=== PATIENT | male | born 1995 | race Caucasian/White ===

== ENCOUNTER 2018-04-18 12:00 | Inpatient (IN) | payer OTHER ==
[~2018-04-18] VITALS: Ht 177.8 cm; Wt 118.2 kg
[2018-04-18 12:58] LABS: HEMATOCRIT 41.4 % (42.0-54.0); HEMOGLOBIN 14.1 g/dL (13.5-17.5); MCH 30.9 pg (26.0-34.0); MCHC 34.1 g/dL (31.0-37.0); MCV 90.6 fL (80.0-100.0); MEAN PLATELET VOLUME 10.2 fL (7.4-10.4); PLATELET COUNT 298 10x3/uL (130-400); RBC 4.57 10x6/uL (4.20-6.10); RDW 12.2 % (11.5-14.5); WBC 27.3 10x3/uL (4.8-10.8)
[2018-04-18 13:04] LABS: ALBUMIN 3.7 g/dL (3.4-5.0); ALKALINE PHOSPHATASE 69 U/L (46-116); ALT (SGPT) 163 U/L (10-68); BILIRUBIN - TOTAL 0.32 mg/dL (0.2-1.3); CALC OSMOLALITY 282 mosm/kg (275-300); CALCIUM 7.8 mg/dL (8.5-10.1); CARBON DIOXIDE 22.8 mmol/L (21.0-32.0); CHLORIDE - SERUM 103 mmol/L (98-107); CREATININE - SERUM 1.1 mg/dL (0.6-1.3); GLUCOSE 127 mg/dL (74-106); POTASSIUM - SERUM 3.5 mmol/L (3.5-5.1); PROTEIN - SERUM 6.9 g/dL (6.4-8.2); SODIUM 141 mmol/L (136-145); UREA NITROGEN 13 mg/dL (7-18); eGFR NON AFRICAN AMERICAN 87 mL/min (90-120)
[2018-04-18 13:12] LABS: EOSINOPHILS 1 % (0-7); LYMPHOCYTES 14 % (15-50); MONOCYTES 6 % (2-11); NEUTROPHILS 70 % (40-80); PLATELET ESTIMATE NORMAL
[2018-04-18 13:30] VITALS: BP 130/51
[2018-04-18 14:30] VITALS: BP 135/50
[2018-04-18 15:02] VITALS: BP 132/50
[2018-04-18 20:53] VITALS: BP 128/86
[2018-04-19 04:00] VITALS: BP 126/59
[2018-04-19 04:39] VITALS: BP 158/79; Ht 177.8 cm; Wt 118.2 kg
[2018-04-19 05:47] LABS: MCH 29.9 pg (26.0-34.0); MCHC 33.5 g/dL (31.0-37.0); MCV 89.3 fL (80.0-100.0); MEAN PLATELET VOLUME 9.6 fL (7.4-10.4); PLATELET COUNT 322 10x3/uL (130-400); RDW 12.6 % (11.5-14.5)
[2018-04-19 06:58] LABS: ALKALINE PHOSPHATASE 52 U/L (46-116); BILIRUBIN - TOTAL 0.83 mg/dL (0.2-1.3); CALC OSMOLALITY 273 mosm/kg (275-300); CALCIUM 7.6 mg/dL (8.5-10.1); CARBON DIOXIDE 23.2 mmol/L (21.0-32.0); CHLORIDE - SERUM 101 mmol/L (98-107); CREATININE - SERUM 1.2 mg/dL (0.6-1.3); GLUCOSE 141 mg/dL (74-106); SODIUM 136 mmol/L (136-145); UREA NITROGEN 13 mg/dL (7-18); eGFR NON AFRICAN AMERICAN 78 mL/min (90-120)
[2018-04-19 07:00] LABS: HEMATOCRIT 31.6 % (42.0-54.0); HEMOGLOBIN 10.6 g/dL (13.5-17.5); RBC 3.54 10x6/uL (4.20-6.10); WBC 14.3 10x3/uL (4.8-10.8)
[2018-04-19 07:01] LABS: ALT (SGPT) 116 U/L (10-68); POTASSIUM - SERUM 4.3 mmol/L (3.5-5.1)
[2018-04-19 07:03] LABS: LYMPHOCYTES 15 % (15-50); MONOCYTES 12 % (2-11); NEUTROPHILS 71 % (40-80); PLATELET ESTIMATE NORMAL
[2018-04-19 07:04] LABS: HYPOCHROMASIA OCC
[2018-04-19 08:00] VITALS: BP 124/62
[2018-04-19 12:00] VITALS: BP 124/68
[2018-04-19 16:12] VITALS: BP 124/69
[2018-04-19 19:00] VITALS: BP 142/68
[2018-04-20 00:46] VITALS: BP 116/66
[2018-04-20 05:19] LABS: BASOPHILS 0.1 % (0-2); EOSINOPHILS 0.5 % (0-7); HEMATOCRIT 26.7 % (42.0-54.0); HEMOGLOBIN 8.8 g/dL (13.5-17.5); IMMATURE GRANULOCYTES 0.6 % (0-5); LYMPHOCYTES 19.5 % (15-50); MCV 91.1 fL (80.0-100.0); MEAN PLATELET VOLUME 9.1 fL (7.4-10.4); MONOCYTES 11.3 % (2-11); RBC 2.93 10x6/uL (4.20-6.10); RDW 12.5 % (11.5-14.5)
[2018-04-20 05:24] VITALS: BP 125/72
[2018-04-20 05:29] LABS: PLATELET COUNT 217 10x3/uL (130-400); WBC 9.7 10x3/uL (4.8-10.8)
[2018-04-20 05:41] LABS: ALBUMIN 2.6 g/dL (3.4-5.0); ALKALINE PHOSPHATASE 40 U/L (46-116); BILIRUBIN - TOTAL 0.67 mg/dL (0.2-1.3); CALC OSMOLALITY 277 mosm/kg (275-300); CALCIUM 7.6 mg/dL (8.5-10.1); CARBON DIOXIDE 28.4 mmol/L (21.0-32.0); CHLORIDE - SERUM 104 mmol/L (98-107); CREATININE - SERUM 0.9 mg/dL (0.6-1.3); GLUCOSE 108 mg/dL (74-106); PROTEIN - SERUM 5.5 g/dL (6.4-8.2); SODIUM 139 mmol/L (136-145); UREA NITROGEN 11 mg/dL (7-18); eGFR NON AFRICAN AMERICAN > 90 mL/min (90-120)
[2018-04-20 05:44] LABS: ALT (SGPT) 78 U/L (10-68)
[2018-04-20 09:53] VITALS: BP 127/69
[2018-04-20 16:00] VITALS: BP 135/78
[2018-04-20 20:42] VITALS: BP 143/61
[2018-04-21 04:32] VITALS: BP 129/65
[2018-04-21 10:09] LABS: BASOPHILS 0.1 % (0-2); EOSINOPHILS 2.2 % (0-7); HEMATOCRIT 27.7 % (42.0-54.0); HEMOGLOBIN 9.2 g/dL (13.5-17.5); IMMATURE GRANULOCYTES 1.4 % (0-5); LYMPHOCYTES 21.3 % (15-50); MCH 30.7 pg (26.0-34.0); MCHC 33.2 g/dL (31.0-37.0); MCV 92.3 fL (80.0-100.0); MEAN PLATELET VOLUME 9.3 fL (7.4-10.4); MONOCYTES 7.7 % (2-11); NEUTROPHILS 67.3 % (40-80); RDW 12.4 % (11.5-14.5); WBC 11.1 10x3/uL (4.8-10.8)
[2018-04-21 10:11] LABS: PLATELET COUNT 264 10x3/uL (130-400)
[2018-04-21 10:26] LABS: ALBUMIN 2.7 g/dL (3.4-5.0); ALKALINE PHOSPHATASE 51 U/L (46-116); ALT (SGPT) 66 U/L (10-68); BILIRUBIN - TOTAL 0.62 mg/dL (0.2-1.3); CALC OSMOLALITY 277 mosm/kg (275-300); CARBON DIOXIDE 25.8 mmol/L (21.0-32.0); CHLORIDE - SERUM 103 mmol/L (98-107); CREATININE - SERUM 0.9 mg/dL (0.6-1.3); GLUCOSE 102 mg/dL (74-106); POTASSIUM - SERUM 3.6 mmol/L (3.5-5.1); PROTEIN - SERUM 6.1 g/dL (6.4-8.2); SODIUM 139 mmol/L (136-145); UREA NITROGEN 12 mg/dL (7-18); eGFR NON AFRICAN AMERICAN > 90 mL/min (90-120)
[2018-04-21 16:10] VITALS: BP 123/63
[2018-04-21 20:45] VITALS: BP 138/68
[2018-04-22 00:27] VITALS: BP 124/66
[2018-04-22 04:41] VITALS: BP 124/80
[2018-04-22 05:52] LABS: BASOPHILS 0.2 % (0-2); EOSINOPHILS 2.8 % (0-7); IMMATURE GRANULOCYTES 2.1 % (0-5); LYMPHOCYTES 26.2 % (15-50); MCH 29.7 pg (26.0-34.0); MCHC 32.1 g/dL (31.0-37.0); MCV 92.4 fL (80.0-100.0); MEAN PLATELET VOLUME 9.4 fL (7.4-10.4); MONOCYTES 7.1 % (2-11); NEUTROPHILS 61.6 % (40-80); RBC 3.03 10x6/uL (4.20-6.10); RDW 12.5 % (11.5-14.5); WBC 9.4 10x3/uL (4.8-10.8)
[2018-04-22 06:34] LABS: ALBUMIN 2.5 g/dL (3.4-5.0); ALKALINE PHOSPHATASE 47 U/L (46-116); ALT (SGPT) 79 U/L (10-68); BILIRUBIN - TOTAL 0.58 mg/dL (0.2-1.3); CALC OSMOLALITY 278 mosm/kg (275-300); CALCIUM 8.4 mg/dL (8.5-10.1); CARBON DIOXIDE 27.5 mmol/L (21.0-32.0); CHLORIDE - SERUM 104 mmol/L (98-107); CREATININE - SERUM 0.9 mg/dL (0.6-1.3); GLUCOSE 93 mg/dL (74-106); POTASSIUM - SERUM 4.1 mmol/L (3.5-5.1); SODIUM 140 mmol/L (136-145); UREA NITROGEN 13 mg/dL (7-18); eGFR NON AFRICAN AMERICAN > 90 mL/min (90-120)
[2018-04-22 06:37] LABS: PLATELET COUNT 320 10x3/uL (130-400)
[2018-04-22 08:49] VITALS: BP 125/60
--- NOTE | 2018-04-22 08:57 | MORECARE ---
CASE MANAGEMENT DISCHARGE SUMMARY PATIENT: LOUISE IRVING UNIT: [id number] ADM DATE: 04/18/18 AGE: 23 : [birth year] SEX: M ROOM/BED: D.2209 AUTHOR: GIORGIO HOWARD PHYSICIAN: REFERRING PHYSICIAN: JEFFERY RICHARDSON MD DATE OF SERVICE: 04/22/18 Discharge Plan Patient Name: LOUISE IRVING Facility: [facility]:[place] : 1995 Planned Disposition: Home or Self Care Anticipated Discharge Date: Discharge Date: Expected LOS: Initial Reviewer: [email or web address] Initial Review Date: 04/18/2018 Generated: 04/22/18 9:57 am External Providers External Provider: [facility] Next Contact Date: Service Request Date: Service Type: Resolution: Reviewer: Comments: Patient Name: LOUISE IRVING Page [phone] at 0857 All edits/amendments must be made on the electronic document DICTATION DATE: 04/22/18 0856 PER DIEM NURSE: DM 04/22/18 0856 RPT#: [id number] DC DATE: STATUS: ADM IN [facility] [address] [place] [address] END OF REPORT
--- NOTE | 2018-04-22 09:05 | MORECARE ---
CASE MANAGEMENT DISCHARGE SUMMARY PATIENT: LOUISE IRVING UNIT: [id number] ADM DATE: 04/18/18 AGE: 23 : [birth year] SEX: M ROOM/BED: D.2209 AUTHOR: ANITADOC PHYSICIAN: REFERRING PHYSICIAN: JEFFERY RICHARDSON MD DATE OF SERVICE: 04/22/18 Discharge Plan Patient Name: LOUISE IRVING Facility: [facility]:[place] : 1995 Planned Disposition: Home or Self Care Anticipated Discharge Date: Discharge Date: Expected LOS: Initial Reviewer: [email or web address] Initial Review Date: 04/18/2018 Generated: 04/22/18 10:05 am Comments DCP- Discharge Planning Updated by [email or web address]: Sera Toscano on 04/22/18 8:[address] Patient Name: LOUISE IRVING Admission Status: ER Accout number: [id number] Admission Date: 04-18-2018 : 1995 Admission Diagnosis: Attending: JEFFERY RICHARDSON Current LOS: 4 Anticipated DC Date: Planned Disposition: Home or Self Care Primary Insurance: [employer] Discharge Planning Comments: CM met with patient and his mother to assess discharge planning needs. Patient lives independently at home with his girlfriend & plans to return there at discharge. He denies any steps or stairs to his home. 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 His mom stated that herself and his girlfriend will help take care of him and he does not need home health. He has a walker at home, but would like crutches. I have order crutches through [employer]. CM will continue to follow and assist with DC planning as needed Research Spec: Sera Toscano DCPIA - Discharge Planning Initial Assessment Updated by [email or web address]: Sera Toscano on 04/22/18 8:58 am * Is the patient Alert and Oriented? Yes * How many steps to enter\exit or inside your home? * PCP NONE * Pharmacy [facility] * Preadmission Environment Home with Family * ADLs Independent * Equipment Rolling Walker * List name and contact numbers for known caregivers / representatives who currently or will assist patient after discharge: ILIANA CAMERON [phone] * Verbal permission to speak to the caregivers and representatives has been obtained from the patient. Yes * Community resources currently utilized None * Additional services required to return to the preadmission environment? No * Can the patient safely return to the preadmission environment? Yes * Has this patient been hospitalized within the prior 30 days at any hospital? No Last DP export: 04/22/18 7:57 am Patient Name: LOUISE IRVING Page [id number] at 0905 All edits/amendments must be made on the electronic document DICTATION DATE: 04/22/18903 SOFTWARE INTERN: MAGALIS 04/22/18903 RPT#: [id number] DC DATE: STATUS: ADM IN [facility] [address] [place] [address] END OF REPORT
--- NOTE | 2018-04-22 09:12 | MORECARE ---
CASE MANAGEMENT DISCHARGE SUMMARY PATIENT: LOUISE IRVING UNIT: [id number] ADM DATE: 04/18/18 AGE: 23 : [birth year] SEX: M ROOM/BED: D.2209 AUTHOR: ANITADOC PHYSICIAN: REFERRING PHYSICIAN: JEFFERY RICHARDSON MD DATE OF SERVICE: 04/22/18 Discharge Plan Patient Name: LOUISE IRVING Facility: [facility]:[place] : 1995 Planned Disposition: Home or Self Care Anticipated Discharge Date: Discharge Date: Expected LOS: Initial Reviewer: [email or web address] Initial Review Date: 04/18/2018 Generated: 04/22/18 10:11 am Comments DCP- Discharge Planning Updated by [email or web address]: Sera Toscano on 04/22/18 8:[address] Camacho order home health, [facility] with [facility] and [facility]. sent referral to sarah DCP- Discharge Planning Updated by [email or web address]: Sera Toscano on 04/22/18 8:[address] Patient Name: LOUISE IRVING Admission Status: ER Accout number: [id number] Admission Date: 04-18-2018 : 1995 Admission Diagnosis: Attending: JEFFERY RICHARDSON Current LOS: 4 Anticipated DC Date: Planned Disposition: Home or Self Care Primary Insurance: [employer] Discharge Planning Comments: CM met with patient and his mother to assess discharge planning needs. Patient lives independently at home with his girlfriend & plans to return there at discharge. He denies any steps or stairs to his home. 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 His mom stated that herself and his girlfriend will help take care of him and he does not need home health. He has a walker at home, but would like crutches. I have order crutches through [facility]. CM will continue to follow and assist with DC planning as needed Assistant Media Planner: Sera Toscano DCPIA - Discharge Planning Initial Assessment Updated by [email or web address]: Sera Toscano on 04/22/18 8:58 am * Is the patient Alert and Oriented? Yes * How many steps to enter\exit or inside your home? * PCP NONE * Pharmacy [facility] * Preadmission Environment Home with Family * ADLs Independent * Equipment Rolling Walker * List name and contact numbers for known caregivers / representatives who currently or will assist patient after discharge: ILIANA CAMERON [phone] * Verbal permission to speak to the caregivers and representatives has been obtained from the patient. Yes * Community resources currently utilized None * Additional services required to return to the preadmission environment? No * Can the patient safely return to the preadmission environment? Yes * Has this patient been hospitalized within the prior 30 days at any hospital? No External Providers External Provider: [facility] Next Contact Date: Service Request Date: Service Type: Resolution: Reviewer: Comments: Last DP export: 04/22/18 8:05 am Patient Name: LOUISE IRVING Page 23197 at 0912 All edits/amendments must be made on the electronic document DICTATION DATE: 04/22/18910 WOOD SKI MAKER: MAGALIS 04/22/18910 RPT#: [id number] DC DATE: STATUS: ADM IN [facility] [address] [place] [address] END OF REPORT
[2018-04-22] MEDS ORDERED: PROTONIX40 MG PO (09:49)
[2018-04-22] MEDS ORDERED: ASPIRIN325 MG PO (09:49)
[2018-04-22] MEDS ORDERED: MIRALAX17 GM PO (09:49)
[2018-04-22] MEDS ORDERED: NORCO 10-325 TA1 TAB PO (12:04)
--- NOTE | 2018-04-22 12:14 | MORECARE ---
CASE MANAGEMENT DISCHARGE SUMMARY PATIENT: LOUISE IRVING UNIT: [id number] ADM DATE: 04/18/18 AGE: 23 : [birth year] SEX: M ROOM/BED: D.2209 AUTHOR: ANITA,DOC PHYSICIAN: REFERRING PHYSICIAN: JEFFERY RICHARDSON MD DATE OF SERVICE: 04/22/18 Discharge Plan Patient Name: LOUISE IRVING Facility: [facility]:[place] : 1995 Planned Disposition: Home or Self Care Anticipated Discharge Date: Discharge Date: Expected LOS: Initial Reviewer: [email or web address] Initial Review Date: 04/18/2018 Generated: 04/22/18 1:14 pm Comments DCP- Discharge Planning Updated by [email or web address]: Sera Toscano on 04/22/18 11:[address] PATIENT DID NOT WANT HOME HEALTH, SARAH CALLED AND STATED THAT HE WOULD HAVE A OUT OF POCKET EXPENSE ALSO. SARAH SPOKE WITH PATIENT TOO PATIENT WILL GET CRUTCHES FROM [employer] [facility] [employer] [facility] [employer] HE STATED. HIS MOM STATED THAT THAT THEY WILL TAKE CARE OF IT. CM WILL CONTINUE TO FOLLOW AND ASSIST WITH DC PLANNING DCP- Discharge Planning Updated by [email or web address]: Sera Toscano on 04/22/18 8:[address] Camacho order home health, [facility]. sent referral to sarah DCP- Discharge Planning Updated by [email or web address]: Sera Toscano on 04/22/18 8:[address] Patient Name: LOUISE IRVING Admission Status: ER Accout number: [id number] Admission Date: 04-18-2018 : 1995 Admission Diagnosis: Attending: JEFFERY RICHARDSON Current LOS: 4 Anticipated DC Date: Planned Disposition: Home or Self Care Primary Insurance: [employer]IGN Discharge Planning Comments: CM met with patient and his mother to assess discharge planning needs. Patient lives independently at home with his girlfriend & plans to return there at discharge. He denies any steps or stairs to his home. 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 His mom stated that herself and his girlfriend will help take care of him and he does not need home health. He has a walker at home, but would like crutches. I have order crutches through [employer]. CM will continue to follow and assist with DC planning as needed Performance Improvement Specialist: Sera Toscano DCPIA - Discharge Planning Initial Assessment Updated by [email or web address]: Sera Toscano on 04/22/18 8:58 am * Is the patient Alert and Oriented? Yes * How many steps to enter\exit or inside your home? * PCP NONE * Pharmacy [facility] * Preadmission Environment Home with Family * ADLs Independent * Equipment Rolling Walker * List name and contact numbers for known caregivers / representatives who currently or will assist patient after discharge: ILIANA CAMERON [phone] * Verbal permission to speak to the caregivers and representatives has been obtained from the patient. Yes * Community resources currently utilized None * Additional services required to return to the preadmission environment? No * Can the patient safely return to the preadmission environment? Yes * Has this patient been hospitalized within the prior 30 days at any hospital? No Last DP export: 04/22/18 8:11 am Patient Name: LOUISE IRVING Page 09653 at 1214 All edits/amendments must be made on the electronic document DICTATION DATE: 04/22/18 1213 SALES DEMONSTRATOR: MAGALIS 04/22/18 1213 RPT#: [id number] DC DATE: STATUS: ADM IN [facility] [address] [place] [address] END OF REPORT
[2018-04-22 12:55] VITALS: BP 125/61
== END 2018-04-22 14:10 | disposition home or self-care (01) | DRG 481 ==
LOC: D.ER 12:00 → D.MS 14:10 → D.EDHOLD 14:10 → D.MS 14:58
PROVIDERS: Family Medicine; Orthopaedic Surgery; ADMIT Internal Medicine Nephrology
PROC: 0KNQ0ZZ Release Right Upper Leg Muscle, Open Approach (ICD-10-PCS; 2018-04-18)
PROC: 0QS806Z Reposition Right Femoral Shaft with Intramedullary Internal Fixation Device, Open Approach (ICD-10-PCS; principal; 2018-04-18 16:00)
DX: S72.301A Unspecified fracture of shaft of right femur, initial encounter for closed fracture (principal); D62 Acute posthemorrhagic anemia; V29.9XXA Motorcycle rider (driver) (passenger) injured in unspecified traffic accident, initial encounter; K70.10 Alcoholic hepatitis without ascites

== ENCOUNTER 2018-06-30 11:44 | Emergency (ER) | payer OTHER ==
[~2018-06-30] VITALS: Ht 177.8 cm; Wt 118.2 kg
[~2018-06-30 11:44] MED LIST: ASPIRIN325 MG PO; MIRALAX17 GM PO; NORCO 10-325 TA1 TAB PO; PROTONIX40 MG PO
[2018-06-30 11:57] VITALS: Ht 177.8 cm; Wt 118.2 kg
[2018-06-30] MEDS ORDERED: TYLENOL W/CODEI1 TAB PO (13:07)
[2018-06-30 13:19] VITALS: BP 136/70
== END 2018-06-30 13:20 | disposition home or self-care (01) ==
LOC: D.ER 11:44
DX: M79.651 Pain in right thigh (principal); V29.9XXA Motorcycle rider (driver) (passenger) injured in unspecified traffic accident, initial encounter; Y93.89 Activity, other specified; Y92.410 Unspecified street and highway as the place of occurrence of the external cause